=== PATIENT | female | born 1930 | race Caucasian/White ===

== ENCOUNTER → 2017-02-06 | Outpatient (CLI) | payer OTHER, MEDICARE | LOC: BRMIMAGING 09:33 | PROVIDERS: ATTEND Physician Assistant | DX: S22.41XA Multiple fractures of ribs, right side, initial encounter for closed fracture (principal); S33.140A Subluxation of L4/L5 lumbar vertebra, initial encounter; M47.896 Other spondylosis, lumbar region; M53.86 Other specified dorsopathies, lumbar region | CPT/HCPCS: 72100-PO ==

== ENCOUNTER → 2017-04-28 | Outpatient (CLI) | payer OTHER, MEDICARE | LOC: BRMIMAGING 08:19 | PROVIDERS: ATTEND Physician Assistant | DX: S22.41XA Multiple fractures of ribs, right side, initial encounter for closed fracture (principal); M51.36 Other intervertebral disc degeneration, lumbar region; M51.37 Other intervertebral disc degeneration, lumbosacral region; M43.17 Spondylolisthesis, lumbosacral region | CPT/HCPCS: 72100-PO ==

== ENCOUNTER → 2017-10-14 | Outpatient (CLI) | payer OTHER, MEDICARE | LOC: BRMIMAGING 12:28 | PROVIDERS: ATTEND Physician Assistant | DX: S22.41XD Multiple fractures of ribs, right side, subsequent encounter for fracture with routine healing (principal) | CPT/HCPCS: 71100-PO ==